=== PATIENT | female | born 1965 | race Hispanic/Latino ===

== ENCOUNTER 2023-01-31 05:31 | Emergency (ER) | payer MEDICARE ==
[~2023-01-31] VITALS: Ht 162.6 cm; Wt 111.1 kg
[2023-01-31 05:59] LABS: BASOPHILS % (AUTO) 0.7 % (0.0-5.0); EOSINOPHILS % (AUTO) 3.3 % (0.0-8.0); HEMATOCRIT 40.8 % (36-48); LYMPHOCYTES % (AUTO) 18.6 % (21.0-51.0); MEAN CORPUSCULAR HEMOGLOBIN 27.1 pg (27.0-33.0); MEAN CORPUSCULAR HGB CONC 34.8 g/dL (32.0-36.0); MEAN CORPUSCULAR VOLUME 77.9 fL (79-99); NEUTROPHILS % (AUTO) 72.1 % (40.0-77.0); PLATELET COUNT (AUTO) 293 K/uL (130-400); RED BLOOD CELL COUNT(AUTO) 5.24 MIL/uL (4.00-5.50); WHITE BLOOD COUNT (AUTO) 15.3 K/uL (4.8-10.8)
[2023-01-31] MEDS ORDERED: ONDANSETRON 4MG INJ IVP ONE (06:00)
[2023-01-31] MEDS ORDERED: MORPHINE 2 MG SYG ONE (06:04)
[2023-01-31 06:18] LABS: ALBUMIN 3.8 g/dL (3.5-5.0); CREATININE 0.8 mg/dL (0.5-1.5); POTASSIUM 4.7 mmol/L (3.5-5.1); TOTAL PROTEIN, SERUM 8.4 g/dL (6.0-8.3)
[2023-01-31 06:22] LABS: APPEARANCE,URINE CLOUDY (CLEAR); BILIRUBIN,URINE NEGATIVE (NEGATIVE); COLOR,URINE COLORLESS (YELLOW); GLUCOSE, URINE (UA) >=1000 mg/dL (NEGATIVE); KETONES,URINE 5 mg/dL (NEGATIVE); LEUKOCYTE ESTERASE ,URINE NEGATIVE Leu/uL (NEGATIVE); NITRATE,URINE NEGATIVE (NEGATIVE); OCCULT BLOOD,URINE LARGE (NEGATIVE); PH,URINE 6.5 (5.0-8.0); PROTEIN,URINE 30 mg/dL (NEGATIVE); RBC,URINE TNTC /HPF (0-1); UROBILINOGEN,URINE 0.2 mg/dL (0.2-1.0); WBC,URINE 51-100 /HPF (0-1)
[2023-01-31] MEDS ORDERED: MORPHINE 2 MG SYG IVP ONE ×2 (06:30→07:30)
[2023-01-31] MEDS ORDERED: CEFTRIAXONE 1G VIAL IVPB ONE (07:00)
[2023-01-31 08:01] VITALS: BP 134/75
[2023-01-31] MEDS ORDERED: PROMETHAZINE HCL 25 MG/ML 1ML AMPULE IM ONE (08:30)
[2023-01-31] MEDS ORDERED: METO-296 PO (09:49)
[2023-01-31] MEDS ORDERED: FAMO-136 PO (09:49)
[2023-01-31] MEDS ORDERED: ACET-2743 PO (09:49)
[2023-01-31] MEDS ORDERED: TAMS-1 PO (09:49)
== END 2023-01-31 10:19 | disposition home or self-care (01) ==
LOC: EDH 05:31
DX: N20.0 Calculus of kidney (principal); E11.9 Type 2 diabetes mellitus without complications; E78.00 Pure hypercholesterolemia, unspecified; Z88.6 Allergy status to analgesic agent; Z99.2 Dependence on renal dialysis
CPT/HCPCS: 99285; 74176; 96365; 96375; 80053; 85025; 87088; 81001; 36415; 96372; J2270 ×2; J2550; J0696